=== PATIENT | male | born 1945 | race Two or more races ===

== ENCOUNTER 2022-09-26 13:00 | Outpatient (REF) | payer MEDICARE, SELFPAY ==
[2022-09-26 14:42] LABS: Thyroid Stimulating Hormone 4.14 uIU/mL (0.32-4.0); Vitamin B12 709 pg/mL (200-900)
== END 2022-09-26 13:01 | disposition home or self-care (01) ==
LOC: HO.LAB 13:00
PROVIDERS: PCP Internal Medicine; Visit Provider Psychiatry & Neurology Neurology
DX: G31.84 Mild cognitive impairment of uncertain or unknown etiology (principal)
CPT/HCPCS: 36415; 82607; 82746; 84443